=== PATIENT | male | born 1990 ===

== ENCOUNTER 2019-05-20 14:41 | Emergency (ER) | payer OTHER ==
[2019-05-20 17:18] LABS: ABS Lymphocytes 1.9 10^3/ul (1.0-4.8); ABS Monocytes 0.4 10^3/ul (0-0.8); ABS Neutrophils 4.7 10^3/ul (1.5-7.7); Eosinophil % 0.3 %; Hematocrit 47 % (42-52); Hemoglobin 16.1 g/dL (14.0-18.0); Lymphocyte % 27.1 %; Mean Corpuscular HGB Conc 34 g/dL (31-36); Mean Corpuscular Hemoglobin 31 pg (27-31); Mean Corpuscular Volume 90 fL (80-94); Mean Platelet Volume 9.5 fL (7.4-10.4); Nucleated Red Blood Cells % 0.1; Platelet Count 201 10^3/uL (150-450); Red Blood Count 5.24 10^6 /uL (4.18-5.48); Red Cell Distribution Width 14 % (10-15)
[2019-05-20 17:19] LABS: Urine Appearance Clear; Urine Bilirubin Negative (Negative); Urine Blood Negative (Negative); Urine Color Yellow; Urine Glucose Negative (Negative); Urine Ketones Negative (Negative); Urine Nitrite Negative (Negative); Urine Protein Negative (Negative); Urine Specific Gravity 1.014 (1.010-1.030); Urine Urobilinogen Negative (Negative)
[2019-05-20 17:36] LABS: AST 16 U/L (13-39); Albumin 4.3 g/dL (3.2-5.2); Alkaline Phosphatase 49 U/L (34-104); Anion Gap 4 mmol/L (2-11); BUN/Creatinine Ratio 17.2 (8-20); Blood Urea Nitrogen 16 mg/dL (6-24); C Reactive Protein < 1.00 mg/L (<8.01); CO2 Carbon Dioxide 29 mmol/L (22-32); Calcium 9.5 mg/dL (8.6-10.3); Chloride 105 mmol/L (101-111); EGFR African American 118.8 (>60); EGFR Non-African American 98.2 (>60); Globulin 2.2 g/dL (2-4); Glucose 92 mg/dL (70-100); Potassium 4.1 mmol/L (3.5-5.0); Sodium 138 mmol/L (135-145); Total Protein 6.5 g/dL (6.4-8.9)
[2019-05-20] MEDS ORDERED: NS 0.9% 1000 ML** 1,000 ML IV ONE (17:57)
[2019-05-20] MEDS ORDERED: Ketorolac INJ* 30 MG/ML 1 ML VIAL IV PUSH ONE (17:57)
--- NOTE | 2019-05-20 17:58 | ED ---
GI/ HPI - HPI Summary HPI Summary: Patient is a 28 y/o male with a known left sided kidney stone who presents to [facility] with complaints of left flank and left lower back pain. Patient states that he has been experiencing pain for the past two weeks. Pain had been improving but worsened again three days ago. Pain has been intermittent and is currently rated 6/10. Radiation of pain to his left inguinal area onset yesterday. He denies testicular pain. He notes some pain with urination but denies fever, chills, and diaphoresis. PMHx of kidney stones around 15 years ago is noted. He denies PSHx and states that the kidney stone passed. Patient is taking potassium citrate. He denies tobacco, alcohol, and substance usage. Patient is a current student studying [employer]. Pt does not report any fever, chills, erythema of eyes, sore throat, CP, SOB, cough, abdominal pain, N/V, hematuria, edema, rash, or dizziness. Home medications and allergies are reviewed. - History of Current Complaint Chief Complaint: EDFlankPain Time Seen by Provider: 05/20/19 16:45 Stated Complaint: FLANK/LOWER ABD PAIN PER PT Hx Obtained From: Patient Onset/Duration: Started Weeks Ago Timing: Intermittent Current Severity: Moderate Pain Intensity: 2 Location of Pain: Radiates to: - left inguinal area, Flank - left, Other - lower left back Associated Signs and Symptoms: Positive: Back Pain, Dysuria, Flank Pain, Other: - does not report any fever, chills, erythema of eyes, sore throat, CP, SOB, cough, abdominal pain, N/V, hematuria, edema, rash, or dizziness. Negative: Dizziness, Nausea, Vomiting, Fever, Hematuria, Chills, Abdominal Pain, Cough, Chest Pain - Allergy/Home Medications Allergies/Adverse Reactions: Allergies Allergy/AdvReac Type Severity Reaction Status Date / Time No Known Allergies Allergy Verified 05/20/19 14:50 Home Medications: Home Medications Ibuprofen TAB* [Advil TAB*] 400 mg PO Q6H PRN 05/20/19 [History Confirmed ] Potassium Citrate (NF) [Urocit-K 10 (NF)] 10 meq PO BID 05/20/19 [History Confirmed 05/20/19] PMH/Surg Hx/FS Hx/Imm Hx History: Reports: Hx Kidney Stones Sensory History: Denies: Hx Legally Blind, Hx Deafness Opthamlomology History: Denies: Hx Legally Blind EENT History: Denies: Hx Deafness - Immunization History Date of Influenza Vaccine: 2019 Immunizations Up to Date: Yes Infectious Disease History: No Infectious Disease History: Denies: Traveled Outside the [place] in Last 30 Days - Family History Known Family History: Negative: Renal Disease - Social History Alcohol Use: None Substance Use Type: Reports: None Smoking Status (MU): Never Smoked Tobacco Review of Systems Negative: Fever, Chills, Skin Diaphoresis Negative: Erythema Negative: Sore Throat Negative: Chest Pain Negative: Shortness Of Breath, Cough Negative: Abdominal Pain, Vomiting, Nausea Positive: dysuria, flank pain. Negative: hematuria Musculoskeletal: Other - positive - left lower back pain Negative: Edema Negative: Rash Neurological: Other - negative - dizziness All Other Systems Reviewed And Are Negative: Yes Physical Exam - Summary Physical Exam Summary: Constitutional: Well-developed, Well-nourished, Alert. (-) Distressed Skin: Warm, Dry HENT: Normocephalic; Atraumatic Eyes: Conjunctiva normal Neck: Musculoskeletal ROM normal neck. (-) JVD, (-) Stridor, (-) Tracheal deviation Cardio: Rhythm regular, rate normal, Heart sounds normal; Intact distal pulses; The pedal pulses are 2+ and symmetric. Radial pulses are 2+ and symmetric. (-) Murmur Pulmonary/Chest wall: Effort normal. (-) Respiratory distress, (-) Wheezes, (-) Rales Abd: Soft, (-) tenderness, (-) Distension, (-) Guarding, (-) Rebound Musculoskeletal: (-) Edema Lymph: (-) Cervical adenopathy Neuro: Alert, Oriented x3 Psych: Mood and affect Normal EXAM: NO TESTICULAR TENDERNESS, NO INGUINAL HERNIA, NORMAL GENITALIA Triage Information Reviewed: Yes Vital Signs On Initial Exam: Initial Vitals Temp Pulse Resp BP Pulse Ox 98.9 F 105 18 136/92 97 05/20/19 14:47 05/20/19 14:47 05/20/19 14:47 05/20/19 14:47 05/20/19 14:47 Vital Signs Reviewed: Yes Procedures - Sedation Patient Received Moderate/Deep Sedation with Procedure: No Diagnostics - Vital Signs Vital Signs Temp Pulse Resp BP Pulse Ox 05/20/19 16:17 94 140/97 98 05/20/19 14:47 98.9 F 105 18 136/92 97 - Laboratory Lab Results: Lab Results 05/20/19 05/20/19 05/20/19 Range/Units 17:05 17:05 17:05 WBC 7.0 (3.5-10.8) 10^3/uL RBC 5.24 (4.18-5.48) 10^6 /uL Hgb 16.1 (14.0-18.0) g/dL Hct 47 (42-52) % MCV 90 (80-94) fL MCH 31 (27-31) pg MCHC 34 (31-36) g/dL RDW 14 (10-15) % Plt Count 201 (150-450) 10^3/uL MPV 9.5 (7.4-10.4) fL Neut % (Auto) 67.0 % Lymph % (Auto) 27.1 % [place] % (Auto) 5.1 % Eos % (Auto) 0.3 % Baso % (Auto) 0.5 % Absolute Neuts (auto) 4.7 (1.5-7.7) 10^3/ul Absolute Lymphs (auto) 1.9 (1.0-4.8) 10^3/ul Absolute Monos (auto) 0.4 (0-0.8) 10^3/ul Absolute Eos (auto) 0.0 (0-0.6) 10^3/ul Absolute Basos (auto) 0.0 (0-0.2) 10^3/ul Absolute Nucleated RBC 0.0 10^3/ul Nucleated RBC % 0.1 Sodium 138 (135-145) mmol/L Potassium 4.1 (3.5-5.0) mmol/L Chloride 105 (101-111) mmol/L Carbon Dioxide 29 (22-32) mmol/L Anion Gap 4 (2-11) mmol/L BUN 16 (6-24) mg/dL Creatinine 0.93 (0.67-1.17) mg/dL Est GFR ( Amer) 118.8 (>60) Est GFR (Non-Af Amer) 98.2 (>60) BUN/Creatinine Ratio 17.2 (8-20) Glucose 92 (70-100) mg/dL Lactic Acid 0.8 (0.5-2.0) mmol/L Calcium 9.5 (8.6-10.3) mg/dL Total Bilirubin 0.40 (0.2-1.0) mg/dL AST 16 (13-39) U/L ALT Pending Alkaline Phosphatase 49 (34-104) U/L C-Reactive Protein < 1.00 (<8.01) mg/L Total Protein 6.5 (6.4-8.9) g/dL Albumin 4.3 (3.2-5.2) g/dL Globulin 2.2 (2-4) g/dL Albumin/Globulin Ratio 2.0 (1-3) Lipase 42 (11.0-82.0) U/L Urine Color Urine Appearance Urine pH (5-9) Ur Specific [place] (1.010-1.030) Urine Protein (Negative) Urine Ketones (Negative) Urine Blood (Negative) Urine Nitrate (Negative) Urine Bilirubin (Negative) Urine Urobilinogen (Negative) Ur Leukocyte Esterase (Negative) Urine Glucose (Negative) 05/20/19 Range/Units 17:09 WBC (3.5-10.8) 10^3/uL RBC (4.18-5.48) 10^6 /uL Hgb (14.0-18.0) g/dL Hct (42-52) % MCV (80-94) fL MCH (27-31) pg MCHC (31-36) g/dL RDW (10-15) % Plt Count (150-450) 10^3/uL MPV (7.4-10.4) fL Neut % (Auto) % Lymph % (Auto) % [place] % (Auto) % Eos % (Auto) % Baso % (Auto) % Absolute Neuts (auto) (1.5-7.7) 10^3/ul Absolute Lymphs (auto) (1.0-4.8) 10^3/ul Absolute Monos (auto) (0-0.8) 10^3/ul Absolute Eos (auto) (0-0.6) 10^3/ul Absolute Basos (auto) (0-0.2) 10^3/ul Absolute Nucleated RBC 10^3/ul Nucleated RBC % Sodium (135-145) mmol/L Potassium (3.5-5.0) mmol/L Chloride (101-111) mmol/L Carbon Dioxide (22-32) mmol/L Anion Gap (2-11) mmol/L BUN (6-24) mg/dL Creatinine (0.67-1.17) mg/dL Est GFR ( Amer) (>60) Est GFR (Non-Af Amer) (>60) BUN/Creatinine Ratio (8-20) Glucose (70-100) mg/dL Lactic Acid (0.5-2.0) mmol/L Calcium (8.6-10.3) mg/dL Total Bilirubin (0.2-1.0) mg/dL AST (13-39) U/L ALT Alkaline Phosphatase (34-104) U/L C-Reactive Protein (<8.01) mg/L Total Protein (6.4-8.9) g/dL Albumin (3.2-5.2) g/dL Globulin (2-4) g/dL Albumin/Globulin Ratio (1-3) Lipase (11.0-82.0) U/L Urine Color Yellow Urine Appearance Clear Urine pH 8.0 (5-9) Ur Specific [place] 1.014 (1.010-1.030) Urine Protein Negative (Negative) Urine Ketones Negative (Negative) Urine Blood Negative (Negative) Urine Nitrate Negative (Negative) Urine Bilirubin Negative (Negative) Urine Urobilinogen Negative (Negative) Ur Leukocyte Esterase Negative (Negative) Urine Glucose Negative (Negative) Result Diagrams: 05/20/19 17:05 05/20/19 17:05 Lab Statement: Any lab studies that have been ordered have been reviewed, and results considered in the medical decision making process. - CT CT ABD/PEL CT Interpretation Completed By: Radiologist Summary of CT Findings: IMPRESSION: 1. No hydronephrosis or stone. 2. No other acute disease seen on nonenhanced study. As Above. THIS REPORT WAS REVIEWED BY ED PHYSICIAN. - Ultrasound ABDOMEN/BLADDER US Ultrasound Interpretation Completed By: Radiologist Summary of Ultrasound Findings: IMPRESSION: 1. 4 mm nonobstructive stone lower pole left kidney. No renal mass. 2. No visualized left ureteral jet, raising possibility of ureteral obstruction. although there is not corresponding hydronephrosis. THIS REPORT WAS REVIEWED BY ED PHYSICIAN. Re-Evaluation - Re-Evaluation First Eval Re-Evaluation Time: 21:50 Comment: Results of workup were discussed, patient to receive CT ABD/PEL. Second Eval Re-Evaluation Time: 22:37 Change: Improved Comment: Patient reports Sx are improved. CT discussed, patient to be discharged. GIGU Course/Dx - Course Course Of Treatment: Patient is a 28 y/o male with a known left sided kidney stone who presents to [facility] with complaints of left flank and left lower back pain. Patient states that he has been experiencing pain for the past two weeks. Pain had been improving but worsened again three days ago. Pain has been intermittent and is currently rated 6/10. Radiation of pain to his left inguinal area onset yesterday. He denies testicular pain. He notes some pain with urination but denies fever, chills, and diaphoresis. PMHx of kidney stones around 15 years ago is noted. He denies PSHx and states that the kidney stone passed. Patient is taking potassium citrate. EXAM: NO TESTICULAR TENDERNESS , NO INGUINAL HERNIA, NORMAL GENITALIA. Bloodwork and UA were within normal limits. During ED course, patient received fluids and Toradol 30 mg IV. ABDOMEN/BLADDER US IMPRESSION: 1. 4 mm nonobstructive stone lower pole left kidney. No renal mass. 2. No visualized left ureteral jet, raising possibility of ureteral obstruction. although there is not corresponding hydronephrosis. Results of workup were discussed, patient to receive CT ABD/PEL. CT ABD/PEL IMPRESSION: 1. No hydronephrosis or stone. 2. No other acute disease seen on nonenhanced study. As Above. I suspect that the patient had a stone that has since passed. Patient to treat pain with ibuprofen. He will be discharged with urology follow up in one week. - Diagnoses Provider Diagnoses: Renal colic Discharge ED - Sign-Out/Discharge Documenting (check all that apply): Patient Departure - discharge - Discharge Plan Condition: Stable Disposition: HOME Patient Education Materials: Renal Colic (ED) Referrals: Carri Rodgers NP [Primary Care Provider] - Sergey Barcenas MD [Medical Doctor] - 1 Week Additional Instructions: PLEASE RETURN TO ED FOR ANY NEW OR WORSENING SYMPTOMS. PLEASE FOLLOW UP WITH UROLOGY IN ONE WEEK. - Attestation Statements Document Initiated by Scribe: Yes Documenting Scribe: KARINE JEWELL Provider For Whom Scribe is Documenting (Include Credential): GREGORIA NICOLAS MD Scribe Attestation: KARINE Nieto, scribed for GREGORIA NICOLAS MD on 05/20/19 at 2311.
[2019-05-20 19:19] LABS: ALT 24 U/L (7-52)
[2019-05-20 23:06] VITALS: BP 131/74
== END 2019-05-20 23:00 | disposition home or self-care (01) ==
LOC: ED 14:41
DX: N20.0 Calculus of kidney (principal); Z87.442 Personal history of urinary calculi
CPT/HCPCS: 36415; 74176; 76770; 80053; 81003; 83605; 83690; 85025; 86140; 96361; 96374; 99282; J1885